=== PATIENT | male | born 1965 | race Asian ===

== ENCOUNTER 2020-09-13 12:30 | Outpatient (CLI) | payer OTHER | END 2020-09-13 21:54 | disposition home or self-care (01) | LOC: RAD 12:30 | PROVIDERS: ATTEND Internal Medicine | DX: M54.5 Low back pain (principal); M54.2 Cervicalgia; M25.512 Pain in left shoulder; M25.511 Pain in right shoulder; I10 Essential (primary) hypertension; M19.90 Unspecified osteoarthritis, unspecified site ==